=== PATIENT | female | born 1945 | race Caucasian/White ===

== ENCOUNTER 2022-01-13 15:24 | Outpatient (REF) | payer MEDICARE, BC, SELFPAY ==
--- OUTSIDE RECORDS SUMMARY | 2022-01-13 15:29 | XMS_ITS | Clinical Summary ---
:1945 Author Organization [employer] [facility] [facility] [place] [address] Care Team Providers Name Role Phone Ignacio Mejia Primary Care Provider [phone] Allergies Active Allergy Reactions Severity Noted Date Comments Amoxicillin-Pot Clavulanate Rash 11/19/2007 Not allergic to penicillin per [place]. Sulfa (Sulfonamide Rash 03/28/2006 Antibiotics) Medications Medication Sig Dispensed Refills Start End Date Status Date cholecalciferol Take 1 tablet 0 Active (VITAMIN D) 1,000 by mouth once 1 unit tablet daily. ubiquinone 75 mg Take 50 mg by 0 Active cap mouth. 4 calcium combo Take by 0 Active no.2-vit. D3 mouth. 7 (CITRACAL + D SLOW REL.) 600 mg calcium- 500 unit Extended-Release tablet aspirin chewable 81 2 Tablets by 0 Active mg chewable tablet mouth daily 8 VITAMINS Take 1 Tablet 0 Active A,C,A-HFNH-WZMRUH by mouth once 1 (Ocuvite daily. PreserVision) 7,160 unit- 113 mg-100 unit tablet azelaic acid APPLY TO 0 Active (FINACEA) 15 % ENTIRE FACE 1 topical gel ONCE DAILY metroNIDAZOLE 0.75 APPLY TO 0 A ctive % cream ENTIRE FACE 1 ONCE DAILY atenoloL (TENORMIN) Take 1 Tablet 90 Tablet 3 Active 50 mg (50 mg) by 2 tabletIndications: mouth once Hypertension daily. fluticasone (50 mcg Inhale 2 16 g 5 Active per actuation) Sprays to 2 nasal solution both nostrils (FLONASE)Indication once daily. s: Recurrent Increase to sinusitis twice daily for allergy flares. gabapentin Take 1 90 Capsule 3 Active (NEURONTIN) 300 mg Capsule (300 2 capsuleIndications: mg) by mouth Trigeminal once daily. neuralgia of right side of face levothyroxine Take 1 Tablet 90 Tablet 3 Ac tive (SYNTHROID) 50 mcg (50 mcg) by 2 tabletIndications: mouth before Other specified breakfast. hypothyroidism lisinopril-hydrochl Take 1 Tablet 90 Tablet 3 Active orothiazide by mouth once 2 (10-12.5 mg) tablet daily. (PRINZIDE; ZESTORETIC)Indicati ons: HTN (hypertension) simvastatin (ZOCOR) Take 1 Tablet 90 Tablet 3 Active 20 mg (20 mg) by 2 tabletIndications: mouth at Mixed bedtime. hyperlipidemia loratadine Take 1 Tablet 0 Activ e (CLARITIN) 10 mg (10 mg) by 2 tablet mouth once daily. cetirizine (ZYRTEC) Take 1 tablet 0 Discontinued 10 mg tablet by mouth once 8 22 (*P atient states daily. no longer taking/Not on sending fa cility list) fluticasone (50 mcg Inhale 2 3 Bottle 11 12/25/19 Discontinued per actuation) Sprays to 1 22 (Reor tima nasal solution both nostrils ( E-cancel not (FLONASE)Indication once daily. sent)) s: Recurrent Increase to sinusitis twice daily for allergy flares. gabapentin Take 1 90 capsule. 3 12/16/19 Discont inued (NEURONTIN) 300 mg Capsule (300 1 22 capsuleIndications: mg) by mouth Trigeminal once daily. neuralgia of right side of face simvastatin (ZOCOR) Take 1 Tablet 90 tablet. 3 12/15 Discontinued 20 mg (20 mg) by 1 22 (Reorder tabletIndications: mouth at ( E-cancel not Mixed bedtime. sent)) hyperlipidemia levothyroxine Take 1 Tablet 90 tablet. 3 12/25/19 D iscontinued (SYNTHROID) 50 mcg (50 mcg) by 1 22 (Reorder tabletIndications: mouth before (E-cancel not Other specified breakfast. sen t)) hypothyroidism lisinopril-hydrochl Take 1 Tablet 90 Tablet 3 Discontinued orothiazide by mouth once 2 22 (Reo rder (10-12.5 mg) tablet daily. (E-cancel not (PRINZIDE; sent)) ZESTORETIC)Indicati ons: HTN (hypertension) atenoloL (TENORMIN) Take 1 Tablet 90 tablet. 0 12/24 Discontinued 50 mg (50 mg) by 2 22 (Reorder tabletIndications: mouth once (E-cancel not Hypertension daily. sent)) azelaic acid Apply 0 12/25/19 Discont inued (FINACEA) 15 % topically to 22 (D uplicate topical gel affected therapy area(s). (E-cancel not sent)) fluticasone (50 mcg Inhale 2 0 12/25/19 Discontinued per actuation) Sprays into 1 (Du plicate nasal solution affected thera py (FLONASE) nostril(s). (E-cance l not sent)) levothyroxine Take 50 mcg 0 12/25/19 Disc ontinued (SYNTHROID) 50 mcg by mouth. 2 22 ( *Patient states tablet no longer taking/Not on sending fa cility list) simvastatin (ZOCOR) Take 20 mg by 0 Discontinued 20 mg tablet mouth. 2 22 (Duplic ate therapy (E-cancel not sent)) gabapentin TAKE ONE 90 Capsule 0 12/25/19 Disconti nued (NEURONTIN) 300 mg CAPSULE BY 2 22 (Reorder capsuleIndications: MOUTH EVERY (E-cancel not Trigeminal DAY sent)) neuralgia of right side of face simvastatin (ZOCOR) Take 1 Tablet 90 Tablet 0 Discontinued 20 mg (20 mg) by 2 22 (Reorder tabletIndications: mouth at ( E-cancel not Mixed bedtime. sent)) hyperlipidemia valACYclovir Take 1 Tablet 21 Tablet 0 01/01/20 Dis continued (VALTREX) 1 gram (1 g) by 2 22 (*P atient states tabletIndications: mouth three no longer Herpes zoster times daily taki ng/Not on without for 7 days. 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 Hyperlipidemia 11/27/2010 Sensorineural hearing loss, bilateral 12/03/2009 Subjective tinnitus 12/03/2009 Overview: Right ear- ringing tinnitus for the last few years, not constant Cerebral aneurysm, nonruptured 07/15/2007 Overview: S/p coiling at [place] '08, repeat MRI '09, due for recheck '11 Postmenopausal atrophic vaginitis 04/06/2007 Osteopenia 12/27/2006 Overview: Lipoma of other skin and subcutaneous tissue 7 Hypothyroidism 10/12/2006 Hypertension 10/12/2006 Chronic low back pain Overview: sees chiropractorVickie ( Danica decker) with activator mechanism Chronic neck pain Overview: seebrent chiropractorVickie ( Danica decker) with activator mechanism Mitral valve disorders Rosacea Resolved Problems Problem Noted Date Resolved Date Disorder of bone and cartilage, unspecified 12/24/2006 12/27/2006 Overview: IN HER HIPS Dermatophytosis of scalp and lott 10/13/200610/13 Cervicalgia 03/28/2006 01/28/2008 Overview: CHRONIC CERVICAL Backache, unspecified 03/28/2006 01/28/2008 Overview: CHRONIC UPPER THORACIC Cerebral aneurysm, nonruptured 8 Overview: 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 Encounters Date Type Specialty Care Team Description 01/10/2022 Telephone Ignacio Mejia, Lab (S URVEILLANCE DO COVID-19) 01/08/2022 Telephone Ignacio Mejia DO 01/02/2022 Hospital Encounter Ignacio Mejia, SOB (shortness of DO breath) 01/02/2022 Travel 12/31/2021 Office Visit Horacio Silva MD Sleep Consul t 12/31/2021 Travel 12/24/2021 Office Visit Ignacio Mejia, Medica re ANNUAL DO (subsequent) Vi sit (PT is here to get medication refi ll.) 12/24/2021 Travel 12/12/2021 Refill Ignacio Mejia, Refill Request DO (Simvastatin, Gabapentin) 11/18/2021 Office Visit Bess Baumann, Follow Up (tests) PA 11/18/2021 Travel 10/31/2021 Refill Ignacio Mejia, Refill Request (Atenolol DO 50mg) from Last 3 Months Immunizations Name Administration Dates Next Due Influenza, High-dose Inactivated 01/26/2019, 01/27/2017, Influenza, IIV3 (Age >=3 years) 01/29/2012, 02/05/2010, 05/2008, 01/28/2008, 02/18/2007, 04/20/2005 Influenza, Inactivated AIIV4 (Age 65+ 01/24/2021, 01/26/2020 Years) Preserv Free Pneumococcal Poly,23-Valent 12/04/2011 (Pneumovax) Pneumococcal conj 13-Valent (Prevnar 03/20/2017 13) Td (Age >=7 Years) 11/04/2004, 08/27/1994 Tdap 10/10/2013 Zoster (Zostavax-ZVL, live) 12/13/2012 Family History Medical History Relation Name Comments Diabetes Father TYPE 2 Heart Disease Father CORONARY ARTERY DISEASE Other Father RENAL FAILURE Osteoporosis Mother Cancer Sister 2 SKIN, BASAL CELL Cancer-breast No Family History Relation Name Status Comments Brother Alive x1 Daughter Alive x1 Father (Age 90) RENAL FAILURE Maternal Grandfather Maternal Grandmother Mother (Age 91) Paternal Grandfather Paternal Grandmother Sister 1 Alive x2 Sister 2 Son Alive x1 Social History Tobacco Use Types Packs/Day Years Used Date Never Smoker Smokeless Tobacco: Never Used Tobacco Cessation: Counseling Given: Yes Alcohol Use Standard Drinks/Week Comments Yes 0 (1 standard drink = 0.6 oz pure alcoho l) occasional Alcohol Habits Answer Date Recorded How often do you have a drink containing alcohol? Not asked How many drinks containing alcohol do you have on a typical Not asked day when you are drinking? How often do you have six or more drinks on one occasion? No t asked Comment: occasional 10/10/2013 Sex Assigned at Date Recorded Not on file COVID-19 Exposure Response Date Recorded In the last 10 days, have you been in contact with No / Unsu re 01/02/2022 3:48 PM CDT someone who was confirmed or suspected to have Coronavirus/COVID-19? Obstetrics History Para Term AB IAB SAB Ectopic Multiple Living Live Births 2 2 2 Date Outcome GA Total Labor/2nd/3rd Weight Sex Delivery Anes PTL Karyn A 1 A5 Name Clin Labor Para Para Comments Blood type O positive Last Filed Vital Signs Vital Sign Reading Time Taken Comments Blood Pressure 139/63 12/31/2021 7:50 AM CDT Pulse 61 12/31/2021 7:50 AM CDT Temperature 36.6 ??C (97.9 ??F) 10/25/2020 1:24 PM CDT Respiratory Rate 18 12/24/2021 1:19 PM CDT Oxygen Saturation 98% 12/31/2021 7:50 AM CDT Inhaled Oxygen Concentration - - Weight 72.2 kg (159 lb 3.2 oz) 12/31/2021 7:50 AM CDT Height 156.3 cm (5' 1.52) 12/31/2021 7:50 AM CDT Body Mass Index 29.58 12/31/2021 7:50 AM CDT Plan of Treatment Upcoming Encounters Date Type Specialty Care Team Description 02/24/2022 [facility] [address] [phone] Health Maintenance Due Date Last Done Comments Zoster (shingles) series for age 1002/07/2013 12/13/2012 50+ (2 of 3) Medicare Wellness for age 65+ 12/06/2021 12/06/2020, 2017, 10/08/2015, Additional history exists Influenza for age 65+ 12/19/2021 01/24/2021, 01/26/2020, 01/26/2019, Additional history exists Depression screening for age 12+ 12/24/2022 12/24/2021, 04/2021, 12/06/2020, Additional history exists BMI (ht and wt on same day) for 12/31/2022 12/31/2021, 09/09/2021, age 18+ 08/06/2021, Additional history exists Tetanus booster 10/11/2023 10/10/2013, 11/04/2004, 08/27/1994 DEXA/DXA scan for age 65+ Completed 12/04/2011, 11/27/2008 , 02/23/2007 Tdap Completed 10/10/2013 Pneumococcal series for age 65+ Completed 03/20/2017, 11/18 Hepatitis C screening for age Completed 10/29/2020 18-79 COVID-19 vaccine series Completed 09/10/2021, 02/07/2021, 06/23/2020, Additional history exists Procedures Procedure Name Priority Date/Time Associated Diagnosis Comme nts COMPLETE PULMONARY Routine 01/02/2022 SOB (shortness of FUNCTION TEST WITH breath) BRONCHODILATOR VITAMIN D 25 Routine 11/18/2021 2:34 Vitamin D deficiency Resu lts for this (DEFICIENCY) PM CDT procedure are i n the results section. BASIC METABOLIC PANEL Routine 11/18/2021 2:34 Stage 3a chronic Results for this PM CDT kidney disease (HC) procedur e are in the results section. HEMOGLOBIN A1C Routine 11/18/2021 2:34 Hyperglycemia Results f or this PM CDT procedure are i n the results section. T4,FREE Routine 11/18/2021 2:34 Hypothyroidism, Results f or this PM CDT unspecified type procedure a re in the results section. TSH Routine 11/18/2021 2:34 Hypothyroidism, Results f or this PM CDT unspecified type procedure a re in the results section. from Last 3 Months Results VITAMIN D 25 (DEFICIENCY) (11/18/2021 2:34 PM CDT) P athologist Signature VITAMIN D 45.4 30.0 - 11/19/2021 [facility] TOTAL 80.0 ng/mL 9:25 PM CDT LABORATORY-[facility] Specimen Anatomical Collection Method / Collection Time Recei eufemia Time (Source) Location / Volume Laterality Blood BLOOD SPECIMEN / Venipuncture / 11/18/2021 2:34 2021 2:36 Unknown Unknown PM CDT PM CDT Narrative [facility] LABORATORY-[facility] - 11/19/2021 9:25 PM CDT Deficiency: ? <20 ng/mL Insufficiency: ?20-29 ng/mL Sufficiency: ?30-80 ng/mL Possible Toxicity: ??>80 ng/mL Based on [place] [facility] recommend ations Bess VILLALBA SEND OUTS Performing Organization Address [facility] Phon e Number [facility] [address] [place] [address] LABORATORY-CENTRAL 2000 LABORATORY TSH (11/18/2021 2:34 PM CDT) athologist Signature TSH 1.77 0.35 - 4.94 11/19/2021 [facility] uIU/mL 9:01 PM CDT LABORATORY-CENTR AL LABORATORY Specimen Anatomical Collection Method / Collection Time Recei eufemia Time (Source) Location / Volume Laterality Blood BLOOD SPECIMEN / Venipuncture / 11/18/2021 2:34 2021 2:36 Unknown Unknown PM CDT PM CDT Narrative [facility] 11/19/2021 9:01 PM CDT In Adults, TSH values between 5.00 and 10.00 uIU/ml do not necessarily indicate the presence of Hyp othyroidism. Correlation with clinical findings such as presence of goiter and/or Thyroperoxidase (TPO) Antibody ma y be helpful. For more information please refer to YVONNE 20 04; 291: [phone]. Bess VILLALBA CHEMISTRY Performing Organization Address [facility] Phon e Number [facility] [address] [place] [address] LABORATORY-CENTRAL 2000 LABORATORY T4,FREE (11/18/2021 2:34 PM CDT) athologist Signature T4,FREE 1.16 0.70 - 1.80 11/19/2021 [facility] ng/dL 9:00 PM CDT LABORATORY-CENTR AL LABORATORY Specimen Anatomical Collection Method / Collection Time Recei eufemia Time (Source) Location / Volume Laterality Blood BLOOD SPECIMEN / Venipuncture / 11/18/2021 2:34 2021 2:36 Unknown Unknown PM CDT PM CDT Bess VILLALBA CHEMISTRY Performing Organization Address City/[facility]/ZIP Code Phon e Number [facility] [address] [place] [address] LABORATORY-CENTRAL 2000 LABORATORY HEMOGLOBIN A1C MONITORING (POCT) (11/18/2021 2:34 PM CDT) athologist Signature HEMOGLOBIN A1C 5.8 <=6.4 % 11/18/2021 [facility] MONITORING 2:57 PM CDT [place] [facility] Specimen Anatomical Collection Method / Collection Time Recei eufemia Time (Source) Location / Volume Laterality Blood BLOOD SPECIMEN / Venipuncture / 11/18/2021 2:34 2021 2:36 Unknown Unknown PM CDT PM CDT Narrative [facility] - 022 2:57 PM CDT ? (<=6.9%) ? Indicates good control ? (7.0% to 7.9%) ? Indicates fa ir control ? (>=8.0%) ? Indicates poor control ?? NOTE: ??These thresholds are guideli jose and ?individual targets may va ry. Falsely low levels may be seen with: Recent Transfusion, Recent Significant B lood Loss, Hemolytic Diseases, or Falsely elevated levels may be seen with : Untreated Anemias, Splenectomy ? Bess VILLALBA CHEMISTRY Performing Organization Address City/[facility]/ZIP Code Phon e Number [facility] [address] [place], [place] [address] (ABNORMAL) BASIC METABOLIC PANEL (11/18/2021 2:34 PM CDT) [facility] Method Time Signature SODIUM 139 135 - 145 11/18/2021 [place] mmol/L 3:14 PM [facility] LABORATORY POTASSIUM 4.0 3.5 - 5.0 11/18/2021 [place] mmol/L 3:14 PM [facility] LABOR[facility] CHLORIDE 102 98 - 110 11/18/2021 [place] mmol/L 3:14 PM [facility] CO2,TOTAL 26 21 - 31 11/18/2021 [place] mmol/L 3:14 PM [facility] ANION GAP 11 5 - 18 11/18/2021 [place] 3:14 PM [facility] GLUCOSE 109 (H) 65 - 100 11/18/2021 [place] mg/dL 3:14 PM [facility] CALCIUM 9.8 8.5 - 10.5 11/18/2021 [place] mg/dL 3:14 PM [facility] BUN 22 8 - 25 11/18/2021 [place] mg/dL 3:14 PM [facility] CREATININE 1.17 (H) 0.57 - 11/18/2021 [place] 1.11 mg/dL 3:14 PM [facility] BUN/CREAT RATIO 19 10 - 20 [facility] eGFR 48 (L) >90 11/18/2021 [place] mL/min/1.7 3:14 PM [facility] 3m2 LABORATORY Comment: As of 2021, eGFR is calcu lated by the CKD-EPI creatinine equation without race adjustment. eGFR can be inf luenced by muscle mass, exercise, and diet. The reported eGFR is an estimation only and is only applicable if the renal function is stable. Specimen Anatomical Collection Method / Collection Time Recei eufemia Time (Source) Location / Volume Laterality Blood BLOOD SPECIMEN / Venipuncture / 11/18/2021 2:34 2021 2:36 Unknown Unknown PM CDT PM CDT Bess VILLALBA CHEMISTRY Performing Organization Address City/State/ZIP Code Phon e Number [facility] [address] [place] [address] from Last 3 Months Insurance Payer Benefit Plan / Subscriber ID Effective Dates Phone Addre ss Type Group MEDICARE PART B MEDICARE PART B [id number] 2010-Presharpreet ATTN: CLAIMS - HB USE ONLY HB ONLY nt [address] [place] [address] [place] MR MR BC [place] [id number] 2013-Presen [address] [place] [address] [place] MR [place] [id number] 2016-[employer]en [address] [address] [place] ONLY [id number] [place] [id number] 2016-[place] [address] [address] [place] ONLY [phone] Liban Pena Personal/Family Spouse [birth year] [address] [place] (Home) [place] T[place]CI[place] [id number] Advance Directives Documents on File Type Date Recorded Patient 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
[2022-01-13 17:13] LABS: SARS PCR* Negative SARS-CoV-2 (Negative)
== END 2022-01-13 15:25 | disposition home or self-care (01) ==
LOC: NPINS 15:24
PROVIDERS: PCP Family Medicine; Visit Provider Family Medicine
DX: Z11.52 Encounter for screening for COVID-19 (principal)
CPT/HCPCS: 87635

== ENCOUNTER 2022-01-13 20:59 | Outpatient (CLI) | payer MEDICARE, BC, SELFPAY ==
--- OUTSIDE RECORDS SUMMARY | 2022-01-13 21:06 | XMS_ITS | Clinical Summary ---
:1945 Author Organization [employer] [facility] [employer] [facility] [place] [address] Care Team Providers Name Role Phone Ignacio Mejia Primary Care Provider [phone] Allergies Active Allergy Reactions Severity Noted Date Comments Amoxicillin-Pot Clavulanate Rash 11/19/2007 Not allergic to penicillin per [facility]. Sulfa (Sulfonamide Rash 03/28/2006 Antibiotics) Medications Medication [...] 8 VITAMINS Take 1 Tablet 0 Active A,C,V-CFDG-QXFWIR by mouth once 1 (Ocuvite daily. PreserVision) [...] aneurysm, nonruptured 07/15/2007 Overview: S/p coiling at [facility] '08, repeat MRI '09, due for recheck [...] breath) 01/02/2022 Travel 12/31/2021 Office Visit Horacio Silav MD Sleep Consul t 12/31/2021 Travel 12/24/2021 [...] Office Visit Horacio Silva MD [address] [facility] [facility] [id number] (Wo rk) Health Maintenance Due [...] Signature VITAMIN D 45.4 30.0 - 11/19/2021 [facility] TOTAL 80.0 ng/mL 9:25 PM CDT LABORATORY-[facility] LABORATORY Specimen Anatomical Collection Method / Collection Time Recei eufemia Time (Source) Location / Volume Laterality Blood BLOOD SPECIMEN / Venipuncture / 11/18/2021 2:34 2021 2:36 Unknown Unknown PM CDT PM CDT Narrative [facility] LABORATORY-[facility] - 11/19/2021 9:25 PM CDT Deficiency: ? <20 ng/mL Insufficiency: ?20-29 ng/mL Sufficiency: ?30-80 ng/mL Possible Toxicity: ??>80 ng/mL Based on [facility] recommend ations Bess VILLALBA SEND OUTS Performing Organization Address [facility] Phon e Number [facility] [address] [place] [address] LABORATORY-CENTRAL 2000 LABORATORY TSH (11/18/2021 2:34 PM CDT) athologist Signature TSH 1.77 0.35 - 4.94 11/19/2021 [facility] uIU/mL 9:01 PM CDT LABORATORY-CENTR AL LABORATORY Specimen Anatomical Collection Method / Collection Time Recei eufemia Time (Source) Location / Volume Laterality Blood BLOOD SPECIMEN / Venipuncture / 11/18/2021 2:34 2021 2:36 Unknown Unknown PM CDT PM CDT Narrative [facility] 11/19/2021 9:01 PM CDT In Adults, TSH values between 5.00 and 10.00 uIU/ml do not necessarily indicate the presence of Hyp othyroidism. Correlation with clinical findings such as presence of goiter and/or Thyroperoxidase (TPO) Antibody ma y be helpful. For more information please refer to YVONNE 20 04; 291: 228-238. Bess VILLALBA CHEMISTRY Performing Organization Address [facility] Phon e Number [facility] [address] [place] [address] LABORATORY-CENTRAL 2000 LABORATORY T4,FREE (11/18/2021 2:34 PM CDT) athologist Signature T4,FREE 1.16 0.70 - 1.80 11/19/[facility]21 [facility] ng/dL 9:00 PM CDT LABORATORY-CENTR AL LABORATORY Specimen Anatomical Collection Method / Collection Time Recei eufemia Time (Source) Location / Volume Laterality Blood BLOOD SPECIMEN / Venipuncture / 11/18/2021 2:34 2021 2:36 Unknown Unknown PM CDT PM CDT Bess VILLALBA CHEMISTRY Performing Organization Address City/[facility]/ZIP Code Phon e Number [facility] [address] [place] [address] LABORATORY-CENTRAL 2000 LABORATORY HEMOGLOBIN A1C MONITORING (POCT) (11/18/2021 2:34 PM CDT) athologist Signature HEMOGLOBIN A1C 5.8 <=6.4 % 11/18/2021 [facility] 2:57 PM CDT [facility] Specimen Anatomical Collection Method / Collection Time Recei eufemia Time (Source) Location / Volume Laterality Blood BLOOD SPECIMEN / Venipuncture / 11/18/2021 2:34 2021 2:36 Unknown Unknown PM CDT PM CDT Narrative [facility] - 022 2:57 PM CDT ? (<=6.9%) [...] ? Bess VILLALBA CHEMISTRY Performing Organization Address City/[facility]/ZIP Code Phon e Number [facility] [address] [place], [place] [address] (ABNORMAL) BASIC METABOLIC PANEL (11/18/2021 2:34 PM CDT) [facility] Method Time Signature SODIUM 139 135 - 145 11/18/2021 [place] mmol/L 3:14 PM [facility] LABORATORY POTASSIUM 4.0 3.5 - 5.0 11/18/2021 [place] mmol/L 3:14 PM [facility] LABORATORY CHLORIDE 102 98 - 110 11/18/2021 [place] mmol/L 3:14 PM [facility] LABORATORY CO2,TOTAL 26 21 - 31 11/18/2021 [place] mmol/L 3:14 PM [facility] LABORATORY ANION GAP 11 5 - 18 11/18/2021 [place] 3:14 PM [facility] LABORATORY GLUCOSE 109 (H) 65 - 100 11/18/2021 [place] mg/dL 3:14 PM [facility] LABORATORY CALCIUM 9.8 8.5 - 10.5 11/18/2021 [place] mg/dL 3:14 PM [facility] LABOR[facility]ORY BUN 22 8 - 25 11/18/2021 [place] mg/dL 3:14 PM [facility] LABORATORY CREATININE 1.17 (H) 0.57 - 11/18/2021 [place] 1.11 mg/dL 3:14 PM [facility] LABORATORY BUN/CREAT RATIO 19 10 - 20 [facility] eGFR 48 (L) >90 11/18/2021 [place] mL/min/1.7 3:14 PM [facility] 3m2 LABORATORY Comment: As of 2021, [...] Organization Address City/State/ZIP Code Phon e Number [facility] [address] [place] [address] from Last 3 Months Insurance Payer Benefit Plan / Subscriber ID Effective Dates Phone Addre ss Type Group MEDICARE PART B MEDICARE PART B [id number] 2010-Presharpreet ATTN: CLAIMS - HB USE ONLY HB ONLY nt [address] 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
== END 2022-01-13 21:00 | disposition home or self-care (01) ==
PROVIDERS: PCP Family Medicine; Visit Provider Internal Medicine
DX: G47.33 Obstructive sleep apnea (adult) (pediatric) (principal)
CPT/HCPCS: 87635; 95810

== ENCOUNTER 2024-10-11 09:41 | Outpatient (CLI) | payer MEDICARE, BC, SELFPAY ==
--- OUTSIDE RECORDS SUMMARY | 2024-10-12 00:46 | XMS_ITS | Encounter Summary ---
Author Organization [facility] Address [address] [place] [address] Care Team Providers Care Chocolate Coater Name Role Phone Unavailable Primary Care Provider Unavailabl e Encounter Details Date Type Department Care Team (Late st Contact Info) Description 02/02/2008 Historical Ophthalmology [facility] Barrett Rob M.D. [address] [place] [address] Social History Tobacco Use Types Packs/Day Years Used Date Smoking Tobacco: Never Assessed Comments Unknown Sex and Gender Information Value Date Recorded Sex Assigned at Female 01/23/2019 5:31 PM CDT Legal Sex Female 7:09 AM A/C TECH Gender Identity Female 01/23/2019 5:31 PM CDT Sexual Orientation Straight 08/16/2020 11 :22 AM CDT documented as of this encounter Progress Notes * Barrett Rob M.D. - 02/02/2008 7:45 AM CDT Eye General CHIEF COMPLAINT annual exam HISTORY OF PRESENT ILLNESS Patient here for annual eye exam. Vision is good at distance and near. Floaters, unsure of which eye, x many years, occasionally. Denies pain, flashes and diplopia. IMPRESSION / REPORT / PLAN #1 Refractive error (myopic astigmatism, presbyopia). Plan: spectacle prescription (Refraction 1) given. DIAGNOSIS #1 Refractive error (myopic astigmatism, presbyopia). CDM Reports - [facility] Id: [id number] Status: Fnl documented in this encounter Plan of Treatment Not on file documented as of this encounter Visit Diagnoses Not on filedocumented in this encounter
--- OUTSIDE RECORDS SUMMARY | 2024-10-12 00:46 | XMS_ITS | Encounter Summary ---
Author Organization [facility] Address [address] [place] [address] Care Team Providers Care Au Pair Name Role Phone Unavailable Primary Care Provider Unavailabl e Encounter Details Date Type Department Care Team (Late st Contact Info) Description 11/28/2009 Historical Ophthalmology [facility] O[facility] Liban Ocampo O.D., Ph.D. 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 - 11/28/2009 1:09 PM CDT Eye General CHIEF COMPLAINT routine eye exam HISTORY OF PRESENT ILLNESS Right eye more blurry. No eye pain or diplopia. Continues to have floaters. No flashes. IMPRESSION / REPORT / PLAN #1 Refractive error (myopic astigmatism, presbyopia). Plan: spectacle prescription (Refraction 2) given. #2 Meibomian gland dysfunction DIAGNOSIS #1 Refractive error (myopic astigmatism, presbyopia). #2 Meibomian gland dysfunction CDM Reports - [facility] Id: [id number] Status: Fnl documented in this encounter Plan of Treatment Not on file documented as of this encounter Visit Diagnoses Not on filedocumented in this encounter
--- OUTSIDE RECORDS SUMMARY | 2024-10-12 00:46 | XMS_ITS | Encounter Summary ---
Author Organization [facility] Address [address] [place] [address] Care Team Providers Care Multi Care Technician Name Role Phone Unavailable Primary Care Provider Unavailabl e Encounter Details Date Type Department Care Team (Late st Contact Info) Description 10/25/2013 Historical Ophthalmology R[facility] O[facility] Viktor Coleman O.D. 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 - 10/25/2013 9:26 AM CDT Eye General CHIEF COMPLAINT general eye exam HISTORY OF PRESENT ILLNESS Denies flashing lights, change in floaters, eye pain or diplopia. She gets migrane auras without the headaches. Last one was in August, she's had 4 total this year. IMPRESSION / REPORT / PLAN #1 Cataract, both eyes, not visually significant. Plan: monitor periodically, discussed. #2 Refractive error (myopic astigmatism, presbyopia). Plan: spectacle prescription (Refraction 2) given. 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 Plan: monitor RTC 1-2 years, sooner prn DIAGNOSIS #1 Cataract, both eyes, not visually significant. #2 Refractive error (myopic astigmatism, presbyopia). 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 CDM Reports - [facility] Id: [id number] Status: Fnl documented in this encounter Plan of Treatment Not on file documented as of this encounter Visit Diagnoses Not on filedocumented in this encounter
--- OUTSIDE RECORDS SUMMARY | 2024-10-12 00:46 | XMS_ITS | Encounter Summary ---
Author Organization [facility] Address [address] [place] [address] Care Team Providers Care Gravel Hauler Name Role Phone Unavailable Primary Care Provider Unavailabl e Encounter Details Date Type Department Care Team (Late st Contact Info) Description 11/14/2010 Historical Ophthalmology R[facility] O[facility] Dashawn Oliver M.D. 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 - 11/14/2010 1:38 PM CDT Eye General CHIEF COMPLAINT Distorted and double vision HISTORY OF PRESENT ILLNESS Distorted vision; both eyes; x 3 months; episodically; symptoms are moderate. She had an episode ofdistorted vision beginning on July 22, 2010, lasting ~ one minute. She had a second episode on 2010, lasting ~ 2 to 3 minutes. On October 22, 2010, she had an episode of blurred vision as opposedto distorted vision, both eyes, lasting a few minutes. She again had an episode of distorted visionon November 01, 2010, which lasted ~ 15 seconds. On November 06, 2010, see woke up with distorted vision and vertical double vision. This has continued since that time but has changed from vertical to more oblique diplopia and then back to more vertical diplopia. She reports several episodes of ocular migraine-type events beginning in June 2010. On July 22, 2010, along with the distorted vision she reported tenderness in her left shinto area. That same day she noticed a black floater in her left eye and a cloudy spot in the vision of her left eye. Denies flashes. IMPRESSION / REPORT / PLAN Bolden Red Green test shows R hyper #1 R 4th nerve palsy Whether this is just a small brain lesion or something related to the surgery we cannot say. Might resolve on its own. Try some prism in glasses, see again in January DIAGNOSIS #1 R 4th nerve palsy [facility] Id: [id number] Status: Fnl documented in this encounter Plan of Treatment Not on file documented as of this encounter Visit Diagnoses Not on filedocumented in this encounter
--- OUTSIDE RECORDS SUMMARY | 2024-10-12 00:46 | XMS_ITS | Encounter Summary ---
Author Organization [facility] Address [address] [place] [address] Care Team Providers Care Animal Sitter Name Role Phone Unavailable Primary Care Provider Unavailabl e Encounter Details Date Type Department Care Team (Late st Contact Info) Description 09/03/2012 Historical Ophthalmology R[facility] OPH Martha Jefferson O.D. [address] [place] [address] Social History Tobacco Use Types Packs/Day Years Used Date Smoking Tobacco: Never Assessed Comments Unknown Sex and Gender Information Value Date Recorded Sex Assigned at Female 01/23/2019 5:31 PM CDT Legal Sex Female 7:09 AM RN REFERRAL Gender Identity Female 01/23/2019 5:31 PM CDT Sexual Orientation Straight 08/16/2020 11 :22 AM CDT documented as of this encounter Progress Notes * Martha Jefferson O.D. - 09/03/2012 1:16 PM CDT Eye General CHIEF COMPLAINT more blinking these days HISTORY OF PRESENT ILLNESS floaters right eye longstanding some blur right eye. otherwise ok. by esha 2010, double vision had resolved. IMPRESSION / REPORT / PLAN #1 Mild cataracts, both mild #2 R cn 4 palsy, resolved monitor #3 Refractive error srx given DIAGNOSIS #1 Mild cataracts, both #2 R cn 4 palsy, resolved #3 Refractive error [facility] Id: [id number] Status: Fnl documented in this encounter Plan of Treatment Not on file documented as of this encounter Visit Diagnoses Not on filedocumented in this encounter
--- OUTSIDE RECORDS SUMMARY | 2024-10-12 00:46 | XMS_ITS | Encounter Summary ---
Author Organization [facility] Address [address] [place] [address] Care Team Providers Care Manufacturing Advisor Name Role Phone Unavailable Primary Care Provider Unavailabl e Encounter Details Date Type Department Care Team (Late st Contact Info) Description 02/03/2011 Historical Ophthalmology RST OPH Cayla Atkinson M.D. 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 - 02/03/2011 9:30 AM CDT Eye General CHIEF COMPLAINT Past month prism doesnt look as good or eye will hurt. HISTORY OF PRESENT ILLNESS Prism reduced from October; . Off to the left vision is distorted. Less diplopia with glasses off. JAL: F/up of a patient of Dr. Oliver'brent from - had an isolated IV n palsy. She came back to see the anish in 11/28 as her glasses were not quite right and the prism was changed from 8 to 4. A few weeks ago she also noted that the glasses weren't quite right again. At home she doesn't wear her glasses much - but always for driving. Occasionally she notes that she closes her left eye (Can't close just the right eye). IMPRESSION / REPORT / PLAN #1 Fourth cranial nerve palsy right eye. Bolden Red Green test shows improvement compared to 10/28. Fresnel prism changed to one base downover right lens. She notes some blurred vision right eye - this is secondary to the Fresnel prism -reassured. She is very observant - if she notes in the future that the glasses are a little off compared to without her glasses, she can peel the prism off at that time. Discussed that this is most likely a small blood vessel related issue - most of which recover completely within ~ 3 months and insome cases a little longer but I would anticipate that it will continue to recover completely. No exercises or treatments that speed up recovery and wearing or not wearing the glasses with the prism does not impact recovery. OK to drive (they head down to [place], [place] soon). If the double recovers she doesn't need to come back to have me agree. DIAGNOSIS #1 Fourth cranial nerve palsy right eye. CDM Reports - [facility] Id: [id number] Status: Fnl documented in this encounter Plan of Treatment Not on file documented as of this encounter Visit Diagnoses Not on filedocumented in this encounter
--- OUTSIDE RECORDS SUMMARY | 2024-10-12 00:46 | XMS_ITS | Clinical Summary ---
Author Organization [facility] Address [address] [place] [id number] Care Team Providers Care Riprap Placing Supervisor Name Role Phone eBss Baumann Primary Care Provider [phone] Allergies Active Allergy Reactions Criticality Noted Date Comments Amoxicillin-Pot Clavulanate Rash 11/19/19 08 Not allergic to penicillin per [facility]. Sulfa (Sulfonamide Antibiotics) Rash 03/28/2006 Medications cholecalciferol (VITAMIN D) 1,000 unit tablet Take 1 tablet by mouth once daily. 0 01/07/20 11 Active UBIQUINONE ORAL Take 100 mg by mouth once daily. 0 10/11/19 14 Active calcium combo no.2-vit. D3 (CITRACAL + D SLOW REL.) 600 mg calcium- 500 unit Extended-Release tablet Take by mouth. 0 08/26/19 17 Active aspirin chewable 81 mg chewable tablet Chew 81 mg by mouth once daily with a meal. 2 Tablets by mouth daily 0 09/12/19 18 Active VITAMINS A,C,L-XKUB-ETDIPB (Ocuvite PreserVision) 7,160 unit- 113 mg-100 unit tablet Take 1 Tablet by mouth once daily. 0 10/30/19 21 Active azelaic acid (FINACEA) 15 % topical gel APPLY TO ENTIRE FACE ONCE DAILY 02/16/20 21 Active metroNIDAZOLE 0.75 % cream APPLY TO ENTIRE FACE ONCE DAILY 02/16/20 21 Active loratadine (CLARITIN) 10 mg tablet Take 1 Tablet (10 mg) by mouth once daily. 0 01/01/20 22 Active PROXY UNCLASSIFIED MED (ORDER AWAITING PHARMACY ENTRY) Take 200 mg by mouth once daily. Magnesium Glyconate 200 mg tablets 2 tablets daily Active albuterol 0.083% (2.5 mg/3 mL) neb solutionIndication s:Cough, unspecified type Inhale 3 mL (2.5 mg) via a nebulizer every 4 hours if needed for Cough. 180 mL 11/03/19 24 Active albuterol HFA (PRO-AIR; VENTOLIN; PROVENTIL) 90 mcg/actuation inhalerIndications :Cough, unspecified type Inhale 1-2 Puffs by mouth every 4 hours if needed for Shortness Of Breath or Wheezing. 1 Each 11/03/19 24 Active albuterol-ipratrop ium (DUONEB) (2.5-0.5 mg) in 3 mL NEBULIZATION solutionIndication s:Upper respiratory tract infection, unspecified type,Cough, unspecified type Inhale 3 mL via a nebulizer every 6 hours if needed for Wheezing or Shortness Of Breath. 45 mL 1 12/08/19 24 Active Magnesium 200 mg tab Take 2 Tablets (400 mg) by mouth once daily. 12/28/19 24 Active atenoloL (TENORMIN) 50 mg tabletIndications: HTN (hypertension) Take 1 Tablet (50 mg) by mouth once daily. 90 Tablet 3 12/28/19 24 Active fluticasone (50 mcg per actuation) nasal solution (FLONASE)Indicatio ns:Recurrent sinusitis Inhale 2 Sprays in both nostrils once daily. Increase to twice daily for allergy flares. 16 g 11 12/28/19 24 Active gabapentin (NEURONTIN) 300 mg capsuleIndications :Trigeminal neuralgia of right side of face Take 1 Capsule (300 mg) by mouth once daily. 90 Capsule 3 12/28/19 24 Active levothyroxine (SYNTHROID) 50 mcg tabletIndications: Other specified hypothyroidism Take 1 Tablet (50 mcg) by mouth before breakfast. 90 Tablet 3 12/28/19 24 Active lisinopril-hydroch lorothiazide (10-12.5 mg) tablet (PRINZIDE; ZESTORETIC)Indicat ions:HTN (hypertension) Take 1 Tablet by mouth once daily. 90 Tablet 3 12/28/19 24 Active simvastatin (ZOCOR) 20 mg tabletIndications: Mixed hyperlipidemia Take 1 Tablet (20 mg) by mouth at bedtime. 90 Tablet 3 12/28/19 24 Active CPAPIndications:OS A (obstructive sleep apnea) RESMED CPAP (E0601) machine for home use at pressure: 4-15cmw, Choice of mask (A7030 or A7034) w/full face cushion (A7031) x1/mo, nasal cushion (A7032) x2/mo, or nasal pillows (A7033) x 2/mo; Length of Need: 99 months; Frequency of use: Daily 1 Each 02/02/20 24 Active oxymetazoline (Afrin, oxymetazoline,) 0.05 % nasal sprayIndications:R ecurrent epistaxis Inhale 0.5 mL (1 Soldier) into affected nostril(s) 2 times daily if needed for Nasal Congestion. 22 mL 03/01/20 24 Active traMADoL 50 mg tabletIndications: Lumbar radiculopathy Take 0.5-1 Tablets (25-50 mg) by mouth 3 times daily if needed for Pain. 12 Tablet 10/12/19 25 Active methylPREDNISolone (Medrol (Terrell)) 4 mg tabletIndications: Lumbar foraminal stenosis,Spondylol isthesis of lumbar region,Lumbar facet arthropathy,Lumbar radiculopathy Take by mouth as instructed per packaging. 21 Tablet 09/03/19 25 025 Discontin ued(*Med complete/ Regimen complete/ Level of care change) traMADoL 50 mg tabletIndications: Lumbar radiculopathy Take 0.5-1 Tablets (25-50 mg) by mouth 3 times daily if needed for Pain. 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 Paroxysmal SVT (supraventricular tachycardia) Prediabetes 11/21/2021 Stage 3a chronic kidney disease 11/21/2021 4th nerve palsy 11/27/2010 Hyperlipidemia 11/27/2010 Sensorineural hearing loss, bilateral 12/03/2009 Subjective tinnitus 12/03/2009 Overview (12/03/2009): Right ear- ringing tinnitus for the last few years, not constant Cerebral aneurysm, nonruptured 07/15/2007 Overview (11/07/2008): S/p coiling at [facility] '08, repeat MRI '09, due for recheck '11 Postmenopausal atrophic vaginitis 04/06/2007 Osteopenia 12/27/2006 Overview (11/07/2008): Lipoma of other skin and subcutaneous tissue Hypothyroidism 10/12/2006 Hypertension 10/12/2006 Chronic low back pain Overview (01/28/2008): sees chiropractorVickie ( [place]) with activator mechanism Chronic neck pain Overview (01/28/2008): sees chiropractorVickie ( [place]) with activator mechanism Mitral valve disorders Rosacea Resolved Problems Problem Noted Date Diagnosed Date Resolved Date Disorder of bone and cartilage, unspecified 12/24/2006 12/27/2006 Overview (12/24/2006): IN HER HIPS Dermatophytosis of scalp and lott 10/13/2006 10/13/2006 Cervicalgia 03/28/2006 01/28/2008 Overview (03/28/2006): CHRONIC CERVICAL Backache, unspecified 03/28/20062007 Overview (03/28/2006): CHRONIC UPPER THORACIC Cerebral aneurysm, nonruptured 07/15/2007 Overview (07/15/2007): 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 Encounters Date Type Department Care Team Description 10/11/2024 10:20 AM CDT Office Visit [facility] at [address] [id number] Vasquez Loyola MD Procedure (L4-5 ILESI) 09/14/2024 11:00 AM CDT Office Visit [facility] [address] [facility] [place] [address] Vasquez Loyola MD Musculoskeletal Problem (Follow up back pain ) 09/14/2024 Travel 09/01/2024 Telephone [facility] [address] [place] [address] Vasquez Loyola MD Concerns from Last 3 Months Immunizations Immunization Administration Dates Next Due COVID-19 VACCINE SPIKEVAX (M ODERNA 50MCG/0.5ML) 12YO+ PFS 02/23/2023 Influenza, High-dose Inactivated 01/26/2019,01/18,01/09/2014 Influenza, IIV3 (Age >=3 years) 01/29/20 12,02/05/2010,01/19/2009,01/27,02/18/2007,04/20/2005 Influenza, Inactivated AIIV4 (Age 65+ Years) Preserv Free 02/03/2022,01/24/2021,01/26/2020 Influenza, Inactivated IIV3 (Age 65+ Years) Preserv Free 02/06/2024 Pneumococcal Poly,23-Valent (Pneumovax) 12/04/2011 Pneumococcal conj 13-Valent (Prevnar 13) 03/20/2017 RSV, Bivalent Vaccine Recons tituted (Abrysvo 120MCG/0.5mL) 03/10/2023 Td (Age >=7 Years) 11/04/2004,08/27/1994 Tdap 10/10/2013 Zoster (Zostavax-ZVL, live) 12/13/2012 Family History Medical History Relation Name Comments Diabetes Father TYPE 2 Heart Disease Father CORONARY ARTER Y DISEASE Other Father RENAL FAILURE Osteoporosis Mother Cancer Sister 2 SKIN, BASAL JOY L Cancer-breast No Family History Relation Name Status Comments Brother Alive x1 Daughter Alive x1 Father (Age 90) RENAL FAIL URE Maternal Grandfather Maternal Grandmother Mother (Age 91) Paternal Grandfather Paternal Grandmother Sister 1 Alive x2 Sister 2 Son Alive x1 Social History Tobacco Use Types Packs/Day Years Used Date Smoking Tobacco: Never Passive Smoke Exposure: Never Smokeless Tobacco: Never Tobacco Cessation:Counseling Given: Not Answered Alcohol Use Standard Drinks/Week Comments Yes 0 (1 standard drink = 0.6 oz pur e alcohol) occasional PHQ-2 Answer Date Recorded PHQ-2 TOTAL SCORE 0 12/28/2023 Social Connections Answer Date Recorded Do you often feel lonely or isolated from those around you? 0 09/28/2023 Financial Resource Strain Answer Date R ecorded Difficulty of Paying Living Expenses 3 09/28/2023 Difficulty of Paying Living Expenses Not on file 09/28/2023 Food Insecurity Answer Date Recorded Do you worry your food will run out before you are able to buy more? 1 09/28/2023 Transportation Needs Answer Date Record ed Does lack of transportation keep you from medica l appointments? 1 09/28/2023 Does lack of transportation keep you from work, meetings or getting things that you need? 1 09/28/2023 Housing Stability Answer Date Recorded What is your housing situation today? 1 09/28/2023 Utilities Answer Date Recorded Do you have trouble paying f or utilities (for example, heat, electricity, water, phone)? 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 Not on file Not on file Not on file Not on file Not on file Not on file Not on file Obstetrics History Para Term AB IAB SAB Ectopic Multiple Livin g Live Births 2 2 2 Date Outcome GA Total Labor Labor/2nd/3rd Weight Sex Type Anes PTL Karyn A1 A5 Name Clin Para Para Comments Blood type O positive Last Filed Vital Signs Vital Sign Reading Time Taken Comments Blood Pressure 118/72 09/14/2024 10:52 AM CDT Pulse 67 09/14/2024 10:52 AM CDT Temperature 36.4 C (97.5 F) 09/14/2024 10:52 AM CDT Respiratory Rate 18 12/08/2023 6:44 PM CDT Oxygen Saturation 94% 09/14/2024 10:52 AM CDT Inhaled Oxygen Concentration - - Weight 75.8 kg (167 lb 3.2 oz) 04/04/2024 1:09 P M JANITORIAL ACCOUNT MANAGER Height 156 cm (5' 1.42) 12/28/2023 1:06 PM CDT Body Mass Index 31.16 12/28/2023 1:06 PM CDT Plan of Treatment Upcoming Encounters Date Type Department Care Team (Late st Contact Info) Description 11/10/2024 2:20 PM CDT Office Visit [facility] [address] [place] [address] Vasquez Loyola MD [address] [place] [address] 01/23/2025 2:00 PM CDT Office Visit [facility] [address] [place] [address] Horacio Silva MD [address] [place] [address] Health Maintenance Due Date Last Done Comments Zoster (shingles) series for age 50+ (2 of 3) 02/07/2013 12/13/2012 Tetanus booster 10/11/2023 10/10/2013, 10/18, 08/27/1994 COVID-19 vaccine series ( season) 2024 03/02/2024, 02/23/2023, 09/10/2021, Additional history exists BMI (ht and wt on same day) for age 18+ 12/27/2024 12/28/2023, 01/26/2023, 12/25/2022, Additional history exists Depression screening for age 12+ 12/27/2024 12/28/2023, 12/25/2022, 12/24/2021, Additional history exists Medicare Wellness for age 65+ 12/28/2024 12/28/2023, 12/25/2022, 12/06/2020, Additional history exists DEXA/DXA scan for age 65+ Completed 2011, 11/27/2008, 02/23/2007 Tdap Completed 10/10/2013 Pneumococcal series for age 50+ Completed 03/20/2017, 12/04/2011 Hepatitis C screening for age 18-79 Completed 10/29/2020 RSV vaccine for adults or Completed 03/10/2023 Influenza Vaccine Completed 02/06/2024, , 01/24/2021, Additional history exists Hepatitis B series for 19+ Aged Out N o longer eligible based on patient's age to complete this topic Procedures Procedure Name Priority Date/Time Associated Diagnosis Comments AMB EPIDURAL STEROID INJECTION Routine 10/11/2024 7:59 AM CDT Lumbar foraminal stenosis Lumbar facet arthropathy Lumbar radiculopathy Trochanteric bursitis of right hip ANTI HCV Routine 10/29/2020 2:24 PM CDT Need for hepatitis C screening test XR DXA BONE DENSITY 2 SITES AXIAL Routine 12/04/2011 11:11 AM CDT Osteopenia from Last 3 Months or Most Recently Relevant to Health Maintenance Results * ANTI HCV (10/29/2020 2:24 PM CDT) HEPATITIS C ANTIBODY Non-React jocelyn Non-React jocelyn 10/30/2020 12:53 AM CDT [facility] Comment:Antibodies to HCV no t detected; does not exclude the possibility of exposure to HCV. Blood BLOOD SPECIMEN / Unknown Venipuncture / Unknown 10/29/2020 2:24 PM CDT 10/29/2020 2:27 PM CDT us Ignacio Mejia DO SEND OUTS Final Res ult [facility] [address] [place] [address], * (ABNORMAL) XR DEXA BONE DENSITY 2 SITES (12/04/2011 11:11 AM CDT) Anatomical Region Laterality Modality Spine, HIPS, HIPL, HIPR Bone Den sitometry Narrative 12/11/2011 3:18 PM CDT Please see scanned document for results of this study. Procedure Note Idalia Damon MD - 12/11/2011 Please see scanned document for results of this study. Ignacio Mejia DO DEXA Final Res ult from Last 3 Months or Most Recently Relevant to Health Maintenance Insurance [address] [place] [id number] MEDICARE PART B HB ONLY [facility] [address] [id number] [facility] BLUE MR PB ONLY [place] [id number] MEDICARE PART B HB ONLY [facility] BLUE MR PB ONLY [facility] BLUE HB ONLY MEDICARE PART A HB ONLY Advance Directives Documents on File Type Date Recorded Patient Disk And Tape Machine Tender Expl anation Healthcare Directive 04/06/2019 12:00 AM 03/31/2019 Healthcare Directive 12/10/2009 [facility], 12/10/2009 Care Teams Riprap Placing Supervisor Relationship Specialty Start Date End Date Bess Baumann PA [address] [place] [address] PCP - General Physician Pesticide Applicator 09/28/23
--- OUTSIDE RECORDS SUMMARY | 2024-10-12 00:47 | XMS_ITS | Clinical Summary ---
Author Organization [facility] Address [address] [place] [address] Care Team Providers Care Manager Council Name Role Phone Unavailable Primary Care Provider Unavailabl e Source Comments Patient records contain information from all sites at [facility]. For routine questions regarding patient records, call [phone] during business hours, M-F 8:00 AM - 5:00 PM Central Time. Record requests for emergency care only can be directed to [phone] at any time.[facility] Allergies Active Allergy Reactions Criticality Noted Date Comments Amoxicillin-Pot Clavulanate Hives (Reselect Reaction),Rash 11/19/2007 Augmentin Not allergic to penicillin per Bryant. Sulfa (Sulfonamide Antibiotics) Hives (Reselect Reaction),Rash 03/28/2006 Medications * This document contains information received from the source organization and may not represent a complete record from that organization. levothyroxine (SYNTHROID, LEVOTHROID) 50 mcg tablet Take 50 mcg by mouth daily with breakfast. 2 Active metroNIDAZOLE (ROSADAN) 0.75 % gel Apply 1 application topically as needed. 3 Active simvastatin (ZOCOR) 20 mg tablet Take 20 mg by mouth at bedtime. 2 Active aspirin 81 mg chewable tablet daily. 8 Active atenoloL (TENORMIN) 50 mg tablet Take 50 mg by mouth daily. 1 Active calcium carb and citrate-vitD3 (CITRACAL+D) 600 mg calcium-12.5 mcg (500 Unit) per tablet Take 1 tablet by mouth daily. 7 Active cholecalciferol , vitamin D3, 25 mcg (1,000 Unit) tablet Take 1 tablet by mouth daily. 1 Active fluticasone propionate (FLONASE) 50 mcg/actuation nasal spray Administer 2 sprays into nostril(s) as needed. 1 Active gabapentin (NEURONTIN) 300 mg capsule Take 300 mg by mouth daily. 2 Active lisinopril-hydr oCHLOROthiazide (PRINZIDE,ZESTO RETIC) 10-12.5 mg per tablet Take 1 tablet by mouth daily. 2 Active vitamins A,C,E-zinc-sidney er (PreserVision AREDS) 7,160 Units-113 mg-100 Units per tablet Take 2 tablets by mouth daily. 1 Active ketoconazole (NIZORAL) 2 % shampoo WASH TO AFFECTED AREA ON BACK OF NECK ONCE DAILY LATHER AND LET SIT FOR SEVERAL MINUTES BEFORE RINSING 2 Active sulfacetamide sodium-sulfur 8-4 % suspension WASH TO AFFECTED AREA ONCE DAILY LATHER AND LET SIT FOR SEVERAL MINUTES BEFORE RINSING 2 Active UNABLE TO FIND Take 1 each by mouth daily. Ubiquinol 100 mg Active magnesium glycinate (MAG GLYCINATE ORAL) Take 400 mg by mouth daily. Active DME CPAP DME Order Active Active Problems Problem Noted Date Diagnosed Date Abnormal Diffusing Capacity 01/28/2022 Overview (01/29/2022): Ms. Pena was referred to our Pulmonary Clinic today by her PCP regarding abnormal PFT results. Ms. Pena herself has not noted any breathing issues. She has not had any shortness of breath, new dyspnea on exertion, wheezing, coughing, infectious symptoms, significant unintentional weight gain or loss, chest pain, presyncope or syncope. The workup was initiated for an episode of persistent high blood pressure and elevated HR in June 2021 with normal ED workup. She was diagnosed with a low burden of asymptomatic SVT, controlled on a beta-tamika. Her BP has also been well controlled after some adjustment in her anti hypertensive regimen. She has at most 5 pack-year smoking history in college, quit in the 1970s, no significant enhancement exposure. 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 They used to have a cat but no allergy symptoms or history. She has no history of connective tissue disease, autoimmune disease, or history of frequent lung infections. Hgb: 13.2 (10/2021) PFTs FEV1 FVC RV TLC DLCO DLCOc 08/2016 ([facility]) 1.60 L (78%) 2.14 L (79%) 2.09 L (98%) 4.46 L (93%) 13.05 (60%) 12/2021 ([facility]) 1.29 L (63%) 1.62 L (60%) 3.03 L (131%) 4.89 L (96%) 10.62 (57%) 59% 01/2022 ([facility]) 1.31 L (75%) 1.71 L (84%) Not obtained Not obtained 10.6 (61%) CXR 10/2021: no pathological finding TTE 08/2021: normal LV, RV function and size. No significant valvular disease. No evidence of pulmonary hypertension. Assessment & Plan (01/29/2022 3:32 PM CDT): Clinically she is asymptomatic from a pulmonary standpoint. From our PFT today using the most updated comparison gives normal spirometry result. She does have mildly reduced diffusion capacity but this is stable compared to 2017. No evidence of pulmonary hypertension. Prior to this visit we had pre-scheduled a chest CT for next Thursday for complete evaluation of lung parenchyma, but low likelihood of this test being abnormal. After deliberation, she would like this done to complete the work up. Most importantly, since she is asymptomatic and actually highly active and functional at her age, I don't think she needs more testing beyond that. 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 Immunizations Immunization Administration Dates Next Due HZV (ZOSTAVAX) 12/13/2012 Influenza, Unspecified 01/09/2014,2007,02/18/2007,2003 PPSV23 12/04/2011 Td (Adult), adsorbed 11/04/2004 Tdap 10/10/2013 influenza trivalent high dos e (HD)(PF) 02/04/2016 influenza trivalent vaccine (6 months and older)(PF) 01/19/2009 Family History Medical History Relation Name Comments Coronary artery disease Father Diabetes type II Father Kidney failure Father Osteoporosis Mother Squamous cell carcinoma Mother Basal cell carcinoma Sister Relation Name Status Comments Father Mother Sister Social History Tobacco Use Types Packs/Day Years Used Date Smoking Tobacco: Former Cigarettes Smokeless Tobacco: Never [facility] Utilities Answer Date Recorded In the past 12 months has e [place], gas, oil, or water [place] threatened to shut off services in your home? No 09/05/2023 Humiliation, Afraid, Rape, and Kick questionnair e Answer Date Recorded Within the last year, have y ou been afraid of your partner or ex-partner? No 10/24/2021 Within the last year, have y ou been humiliated or emotionally abused in other ways by your partner or ex-partner? No Within the last year, have y ou been kicked, hit, slapped, or otherwise physically hurt by your partner or ex-partner? No 10/24/2021 Within the last year, have y ou been raped or forced to have any kind of sexual activity by your partner or ex-partner? No 10/24/2021 Hunger Vital Sign Answer Date Recorded Within the past 12 months, y ou worried that your food would run out before you got the money to buy more. Never true 09/05/19 24 Within the past 12 months, t he food you bought just didn't last and you didn't have money to get more. Never true 09/05/2023 PRAPARE - Transportation Answer Date Re corded In the past 12 months, has l ack of transportation kept you from medical appointments or from getting medications? No 08/18 In the past 12 months, has l ack of transportation kept you from meetings, work, or from getting things needed for daily living? No 09/05/2023 Housing Stability Answer Date Recorded What is your living situation today? [facility] 09/05/2023 Education Answer Date Recorded What is the highest level of school you have completed or the highest degree you have received? 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 Gender Identity Female 01/23/2019 5:31 PM CDT Sexual Orientation Straight 08/16/2020 11 :22 AM CDT Last Filed Vital Signs Vital Sign Reading Time Taken Comments Blood Pressure 132/78 01/29/2022 1:47 PM CDT Pulse 69 01/29/2022 1:47 PM CDT Temperature 36 C (96.8 F) 01/29/2022 1:47 PM CDT Respiratory Rate - - Oxygen Saturation 97% 01/29/2022 1:47 PM CDT rm air Inhaled Oxygen Concentration - - Weight 71.5 kg (157 lb 10.1 oz) 01/29/2022 1:47 PM CDT Height 165.4 cm (5' 5.12) 01/29/2022 1:47 PM CD T Body Mass Index 26.14 01/29/2022 1:47 PM CDT Plan of Treatment Health Maintenance Due Date Last Done Comments Hepatitis C Screening 1945 Office Visit for Blood Pressure Check / Re-check 1945 Zoster Vaccines (2 of 3) 02/07/2013 12/13/2012 DTaP,Tdap,and Td Vaccines (2 - Td or Tdap) 10/11/2023 10/10/2013, 11/04/2004, 08/27/1994 COVID-19 Vaccine ( season) 2023 02/23/2023, 09/10/2021, 02/07/2021, Additional history exists Depression Screening (Annual PHQ-2) 04/20/2024 Fall Risk Screen (Annual) 04/20/2024 Creatinine Level (Kidney Function Test) 12/27/2024 12/28/2023, 12/25/2022, 05/02/2022, Additional history exists Potassium Level 12/27/2024 12/28/2023, 07/2022, 12/25/2022, Additional history exists Sodium Level 12/27/2024 12/28/2023, 10/2022, 05/02/2022, Additional history exists Thyroid Stimulating Hormone (TSH) test for thyroid function 12/27/2024 12/28/2023, 12/25/2022, 11/18/2021, Additional history exists Pneumococcal vaccine (50+ years) Completed 03/20/2017, 12/04/2011 Mammogram Discontinued 11/28/2022, 11/18, 11/29/2020, Additional history exists RSV vaccine - (32-36 weeks) or 60+ years Completed 03/10/2023 Influenza Vaccine Completed 02/06/2024, , 01/24/2021, Additional history exists IPV Vaccines Aged Out No longer eligi ble based on patient's age to complete this topic Medical Devices Implanted Type Area Clinical Dietitian Device Identifier Shelf Expiration Date Model / Serial / Lot Coil Hel 18-Soft 5x12 - [id number] Implanted:Qty: 1 on 07/30/2007 Embolization Coil MicroVention Description:Device Manufactu rer - MicroVention. Device Status Text - [id number]. Coil Microplex Hypersoft 2x6 - [id number] Implanted:Qty: 1 on 07/30/2007 Embolization Coil MicroVention Description:Device Manufactu rer - MicroVention. Device Status Text - [id number]. Coil Microplex Hypersoft 2x4 - [id number] Implanted:Qty: 2 on 07/30/2007 Embolization Coil MicroVention Description:Device Manufactu rer - MicroVention. Device Status Text - [id number]. Coil Hel 18-Soft 4x10 - [id number] [id number] Implanted:Qty: 1 on 07/30/2007 Embolization Coil MicroVention Description:Device Manufactu rer - MicroVention. Device Status Text - [id number]. Ocular Lens Ocular Lens Bilater al: Eye Procedures Procedure Name Priority Date/Time Associated Diagnosis Comments THYROID FUNCTION CASCADE, S Routine 10/30/2021 8:11 AM CDT Aneurysm Cerebral Unruptured (HCC) Tachycardia Supraventricular (HCC) COMPREHENSIVE METABOLIC PANEL, S/P Routine 10/30/2021 8:11 AM CDT Aneurysm Cerebral Unruptured (HCC) Tachycardia Supraventricular (HCC) from Last 3 Months or Most Recently Relevant to Health Maintenance Results * (ABNORMAL) Thyroid Function [place] (10/30/2021 8:11 AM CDT) TSH, Sensitive 5.8(H) 0.3 - 4.2 mIU/L 10/30/2021 9:32 AM CDT DTL Blood (Blood, Venous) 10/30/2021 8:11 AM CDT 10/30/2021 8:57 AM CDT Jim Carter M.D., M.S. LAB BLOOD ADD-ON Amber l Result [facility] [address] [place] [address], [facility] [address] [place] [address] * (ABNORMAL) Comprehensive Metabolic Panel (10/30/2021 8:11 AM CDT) Potassium, S 4.7 3.6 - 5.2 mmol/L 10/30/2021 9:32 AM CDT DTL Sodium, S 139 135 - 145 mmol/L 10/30/2021 9:32 AM CDT DTL Chloride, S 101 98 - 107 mmol/L 10/30/2021 9:32 AM CDT DTL Bicarbonate, S 27 22 - 29 mmol/L 10/30/2021 9:32 AM CDT DTL Anion Gap 11 7 - 15 10/30/2021 9:32 AM CDT DTL BUN (Blood Urea Nitrogen), S 25(H) 6 - 21 mg/dL 10/30/2021 9:32 AM CDT DTL Creatinine 1.19(H) 0.59 - 1.04 mg/dL 10/30/2021 9:32 AM CDT DTL eGFR-Non Black/ 44(L) >=60 mL/min/BS A 10/30/2021 9:32 AM CDT DTL Comment: ----ADDITIONAL INFORMATION---- Estimated GFR calculated using the 2009 CKD_EPI creatinine equation. eGFR-Black/ 51(L) >=60 mL/min/BS A 10/30/2021 9:32 AM CDT DTL Comment: ----ADDITIONAL INFORMATION---- Estimated GFR calculated using the 2009 CKD_EPI creatinine equation. Calcium, Total, S 9.8 8.8 - 10.2 mg/dL 10/30/2021 9:32 AM CDT DTL Glucose, S 69(L) 70 - 140 mg/dL 10/30/2021 9:32 AM CDT DTL Protein, Total, S 7.0 6.3 - 7.9 g/dL 10/30/2021 9:32 AM CDT DTL Albumin, S 4.6 3.5 - 5.0 g/dL 10/30/2021 9:32 AM CDT DTL Aspartate Aminotransferase (AST), S 28 8 - 43 U/L 10/30/2021 9:32 AM CDT DTL Alkaline Phosphatase, S 91 35 - 104 U/L 10/30/2021 9:32 AM CDT DTL Alanine Aminotransferase (ALT), S 30 7 - 45 U/L 10/30/2021 9:32 AM CDT DTL Bilirubin, Total, S 0.3 <=1.2 mg/dL 10/30/2021 9:32 AM CDT DTL Blood (Blood, Venous) 10/30/2021 8:11 AM CDT 10/30/2021 8:57 AM CDT Jim Carter M.D., M.S. 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
== END 2024-10-11 09:42 | disposition home or self-care (01) ==
LOC: INJ CL 09:43
PROVIDERS: PCP Physician Assistant; Visit Provider Family Medicine
DX: M54.16 Radiculopathy, lumbar region (principal); M51.369 Other intervertebral disc degeneration, lumbar region without mention of lumbar back pain or lower extremity pain
CPT/HCPCS: 62323; J0702; Q9966